=== PATIENT | male | born 1990 | race Caucasian/White ===

== ENCOUNTER 2019-09-30 14:14 | Emergency (ER) | payer OTHER ==
[~2019-09-30] VITALS: Ht 167.6 cm; Wt 111.1 kg
[2019-09-30 14:17] VITALS: Ht 167.6 cm; Wt 111.1 kg
[2019-09-30 18:09] VITALS: BP 114/71
== END 2019-09-30 18:09 | disposition home or self-care (01) ==
LOC: ED 14:14
DX: R10.9 Unspecified abdominal pain (principal); J45.909 Unspecified asthma, uncomplicated; R39.15 Urgency of urination; R42 Dizziness and giddiness